=== PATIENT | male | born 1980 | race African-American/Black ===

== ENCOUNTER 2021-02-12 02:36 | Emergency (ER) | payer BC, MEDICAID ==
[~2021-02-12] VITALS: Ht 182.9 cm; Wt 104.3 kg
[2021-02-12 02:43] VITALS: BP 196/97
--- NOTE | 2021-02-12 02:45 | NUR ---
RECEIVED IN CHAIR C VIA AMBULANCE WITH C/O FEELING WEIRD AFTER ROOMMATE CAME HOME.. VERY DIFFICULT OBTAINING HISTORY. PT STATES "I STARTED SEEING STARS" PMH : HTN NKDA
--- NOTE | 2021-02-12 02:52 | NUR ---
DR ARANDA AT BEDSIDE FOR EXAM
[2021-02-12] MEDS ORDERED: ONDANSETRON 4 MG/2 ML VIAL IVP ONE (03:05)
[2021-02-12] MEDS ORDERED: MECLIZINE 25 MG TAB PO ONE (03:05)
[2021-02-12] MEDS ORDERED: MORPHINE SULFATE 4 MG/ML SYR IVP ONE (03:05)
[2021-02-12] MEDS ORDERED: lisinopriL 20 MG TAB PO ONE (03:05)
[2021-02-12 03:28] LABS: BASOPHILS # (AUTO) 0.1 K/uL (0.00-0.22); BASOPHILS % (AUTO) 1.1 % (0.0-2.0); EOSINOPHILS # (AUTO) 0.2 K/uL (0-0.4); EOSINOPHILS % (AUTO) 2.2 % (0.0-4.0); LYMPHOCYTES # (AUTO) 1.6 K/uL (2.0-11.5); LYMPHOCYTES % (AUTO) 16.4 % (20.5-51.1); MEAN CORPUSCULAR HEMOGLOBIN 22 pg (27-31); MEAN CORPUSCULAR HGB CONC 32 g/dL (33-37); MEAN CORPUSCULAR VOLUME 67.5 fL (80-94); MONOCYTES # (AUTO) 0.7 K/uL (0.8-1.0); MONOCYTES % (AUTO) 7.5 % (1.7-9.3); NEUTROPHILS # (AUTO) 7.1 K/uL (1.8-7.7); NEUTROPHILS % (AUTO) 72.8 % (42.2-75.2); PLATELET COUNT (AUTO) 360 K/uL (140-450); RED BLOOD CELL COUNT(AUTO) 6.51 MIL/uL (4.20-6.10); RED CELL DISTRIBUTION WIDTH 15.1 % (11.6-13.7); WHITE BLOOD COUNT (AUTO) 9.7 K/uL (4.8-10.8)
--- NOTE | 2021-02-12 03:35 | NUR ---
[facility]
[2021-02-12 03:48] LABS: ALBUMIN 3.9 g/dL (3.4-5.0); ANION GAP 13.2 (8-16); CARBON DIOXIDE 26.5 mmol/L (21-32); CREATININE 0.9 mg/dL (0.6-1.3); POTASSIUM 3.7 mmol/L (3.5-5.1); TOTAL BILIRUBIN 0.4 mg/dL (0.0-1.0)
--- NOTE | 2021-02-12 04:00 | NUR ---
REQUESTING SOMETHING TO DRINK. WATER GIVEN
[2021-02-12 04:36] VITALS: BP 155/100
--- NOTE | 2021-02-12 04:47 | NUR ---
HAS BECOME AGITATED. "I JUST WANT TO LEAVE. I'M GOING TO GO HOME" REASSURANCE GIVEN, PLAN OF CARE EXPLAINED. PT CONTINUES TO SAY, " I WANT TO GO HOME"
[2021-02-12] MEDS ORDERED: MECL-303 PO (04:48)
[2021-02-12] MEDS ORDERED: ATOR40TA40 PO (04:49)
[2021-02-12] MEDS ORDERED: LISI20TA29 PO (04:49)
--- NOTE | 2021-02-12 05:00 | NUR ---
PT DISCHARGED AMA. PT WAS GIVEN ACI AND RX
== END 2021-02-12 05:00 | disposition left against medical advice (07) ==
LOC: MED 02:36
DX: R42 Dizziness and giddiness (principal); R55 Syncope and collapse; I10 Essential (primary) hypertension; F17.210 Nicotine dependence, cigarettes, uncomplicated
CPT/HCPCS: 36415; 71045; 80053; 84484; 85025; 93005; 96374; 96375; 99285; J2270; J2405; J8597; Q0092